=== PATIENT | male | born 1990 | race Caucasian/White ===

== ENCOUNTER 2016-10-11 17:38 | Inpatient (IN) | payer SELFPAY ==
[2016-10-11] MEDS ORDERED: SODIUM CHLORIDE 0.9% 1000ML 1,000 ML IVS ONE ×2 (17:52→20:10)
--- NOTE | 2016-10-11 17:55 | ED.PDOC ---
History of Present Illness - General Chief Complaint: Diabetic Complaint Stated Complaint: trouble breathing,elevated blood sugar Time Seen by Provider: 10/11/16 17:44 Source: patient, RN notes reviewed, Vital Signs reviewed Exam Limitations: no limitations - History of Present Illness Initial Comments: Patient comes in due to feeling like his blood sugar is high. He took his last dose of insulin yesterday morning. HE c/o SOB and light sensitivity. Nausea yesterday. No increased urination. He was diagnosed as a diabetic 8 months ago. Timing/Duration: 24 hours Severity: moderate Improving Factors: nothing Worsening Factors: nothing Associated Symptoms: shortness of breath Allergies/Adverse Reactions: Allergies NO KNOWN ALLERGY Allergy (Verified 10/11/16 17:48) Home Medications: Ambulatory Orders Insulin Detemir [Levemir] 300 unit SUBCU .SLIDING SCALE 10/11/16 Insulin NPH Isophane & Reg (Hu [Humulin 70/30] 50 unit SC BID 10/11/16 Review of Systems - Review of Systems Constitutional: States: malaise EENTM: States: other - light sensitivity Respiratory: States: short of breath Cardiology: States: no symptoms reported Gastrointestinal/Abdominal: States: nausea Genitourinary: States: no symptoms reported Musculoskeletal: States: no symptoms reported Skin: States: no symptoms reported Neurological: States: no symptoms reported Endocrine: States: see HPI Hematologic/Lymphatic: States: no symptoms reported Past Medical History (General) - Patient Medical History Hx Congestive Heart Failure: No Hx Gastroesophageal Reflux: Yes - Vaccination History Hx Influenza Vaccination: No - Social History Hx Tobacco Use: Yes Family Medical History - Family History Father Family History: Unknown Living Status: Unknown Physical Exam - Physical Exam General Appearance: Alert, Comfortable, Ill Appearing, Other - strong Acetone smell Neck: non-tender, full range of motion, supple, normal inspection Respiratory: chest non-tender, lungs clear, normal breath sounds, no respiratory distress, no accessory muscle use Cardiovascular/Chest: regular rate, rhythm, no edema, no gallop, no murmur Gastrointestinal/Abdominal: normal bowel sounds, non tender, soft, no organomegaly, no pulsatile mass Neurologic: no motor/sensory deficits, alert, normal mood/affect, oriented x 3 Skin Exam: normal color, warm/dry Comments: Vital Signs - 24 hr 10/11/16 17:48 Temperature 95.3 F L Pulse Rate [ 102 H Left Brachial] Respiratory 20 Rate Blood Pressure 148/92 [Left Arm] O2 Sat by Pulse 100 Oximetry Progress - Progress Progress: 10/11/16 18:45 Patient with DKA. Started IV fluids and gave SQ insulin. Discussed with hospitalist. Will admit. Wants ABG. - Results/Orders Results/Orders: Laboratory Tests 10/11/16 10/11/16 10/11/16 17:52 17:52 17:57 WBC 14.2 H RBC 5.73 Hgb 18.2 H Hct 55.3 H MCV 96.5 H MCH 31.7 H MCHC 32.9 L RDW 13.6 Plt Count 389 MPV 7.0 L Absolute Neuts (auto) 10.50 H Absolute Lymphs (auto) 2.20 Absolute Monos (auto) 1.00 H Absolute Eos (auto) 0.40 Absolute Basos (auto) 0.10 Neutrophils % 74.2 Lymphocytes % 15.1 L Monocytes % 6.8 Eosinophils % 2.9 Basophils % 1.0 Sodium 126 L Potassium 4.4 Chloride 95 L Carbon Dioxide < 7 L* Anion Gap 28.4 H BUN 13 Creatinine 1.01 BUN/Creatinine Ratio 12.9 POC Glucose > 400 H* Random Glucose 541 H* Serum Osmolality 278.1 Calcium 8.6 Total Bilirubin 1.7 H AST 16 ALT 20 Alkaline Phosphatase 184 H Serum Total Protein 8.8 H Albumin 4.4 Globulin 4.4 H Albumin/Globulin Ratio 1.0 L Serum Ketones Moderate Departure - Departure Clinical Impression: Diabetes mellitus with ketoacidosis Qualifiers: Diabetes mellitus type: type 1 Diabetes mellitus complication detail: without coma Qualified Code(s): E10.10 - Type 1 diabetes mellitus with ketoacidosis without coma Time of Disposition: 18:46 Disposition: Admit Patient Condition: Poor Departure Forms: ED Discharge - Pt. Copy, Patient Portal Self Enrollment Home Medications: Ambulatory Orders Insulin Detemir [Levemir] 300 unit SUBCU .SLIDING SCALE 10/11/16 Insulin NPH Isophane & Reg (Hu [Humulin 70/30] 50 unit SC BID 10/11/16 Decision To Admit - Decistion To Admit Decision to Admit Reason: Admit from ER - Admit for DKA - discussed with hospitalist
[2016-10-11] MEDS ORDERED: INSULIN, REG.(HUMAN) 100 U/ML VIAL SUBCU ONE (18:40)
[2016-10-11] MEDS ORDERED: ACETAMINOPHEN 325 MG TAB PO PRN (19:06)
[2016-10-11] MEDS ORDERED: ONDANSETRON INJ 4 MG/2 ML VIAL IV PRN (19:06)
[2016-10-11] MEDS ORDERED: SODIUM CHLORIDE 0.9% (FLUSH) 10 ML SYG IV PRN (19:06)
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
[2016-10-11] MEDS ORDERED: IV SET AND CAP CHANGE INJ INJ SCH (19:30)
[2016-10-11] MEDS ORDERED: SODIUM CHLORIDE 0.9% 1000ML 1,000 ML ONE (19:53)
[2016-10-11] MEDS ORDERED: KCL 20 MEQ/NS 1,000 ML IVS PRN (20:48)
[2016-10-11] MEDS ORDERED: SODIUM CHL 0.9% 250ML (AVIVA) 250 ML IVPB ONE (20:55)
[2016-10-11] MEDS ORDERED: INSULIN, REG.(HUMAN) 100 U/ML VIAL ONE (20:56)
[2016-10-11] MEDS ORDERED: KCL 20 MEQ/NS 1,000 ML IVS ONE (21:01)
[2016-10-11] MEDS: INSULIN, REG.(HUMAN) 250 UNITS in SODIUM CHL 0.9% 250ML (AVIVA) 247.5 ML IVPB SCH ×2 (21:25)
[2016-10-11] MEDS ORDERED: KCL 20MEQ/D5NS 1,000 ML IVS PRN (22:31)
[2016-10-11] MEDS ORDERED: KCL 20MEQ/D5NS 1,000 ML IVS ONE (22:42)
--- NOTE | 2016-10-11 23:58 | PCM.CORE ---
Physician DVT/VTE - Nurse DVT Assessment & Total Each Risk Factor Represents 1 Point: Medical PT at Bed Rest, Hx of smoking past year DVT Assessment Score: 2 - 2 Moderate Risk Treatments: Early Ambulation *, Sequential Compression Device Pharmacological: Enoxaparin 40mg SQ Daily
[2016-10-12] MEDS: ENOXAPARIN SODIUM 40 MG/0.4 ML SYG SUBCU SCH ×2 (00:39→00:51)
[2016-10-12] MEDS ORDERED: KCL 30MEQ/D5 1/2NS 1,000 ML IVS PRN (02:42)
[2016-10-12] MEDS ORDERED: DEX 5% W/NACL 0.45% 1000ML 1,000 ML IVS ONE (02:55)
[2016-10-12] MEDS ORDERED: POTASSIUM CHLORIDE 20mEq 10ML VIAL ONE (02:55)
[2016-10-12] MEDS ORDERED: POTASSIUM CHLORIDE 10mEq 5ML VIAL ONE ×2 (02:55→07:32)
[2016-10-12] MEDS ORDERED: MORPHINE SULFATE INJ 10 MG/ML VIAL ONE (07:26)
[2016-10-12] MEDS ORDERED: KCL 20MEQ/D5 1/2NS 1,000 ML IVS ONE (07:31)
[2016-10-12] MEDS: INSULIN, REG.(HUMAN) 250 UNITS in SODIUM CHL 0.9% 250ML (AVIVA) 247.5 ML IVPB SCH ×2 (07:56)
[2016-10-12] MEDS ORDERED: [UNRECOGNIZED DRUG - OTHER] IV PRN (08:00)
[2016-10-12] MEDS ORDERED: KCL IV PRN (08:00)
[2016-10-12] MEDS ORDERED: POTASSIUM CHLORIDE IV PRN (08:00)
[2016-10-12] MEDS ORDERED: GLUCAGON INJ 1 MG VIAL SUBCU PRN (08:06)
[2016-10-12] MEDS ORDERED: DEXTROSE 50% 25 GM/50 ML SYG IV PRN (08:06)
[2016-10-12] MEDS ORDERED: MAGNESIUM SULFATE PREMIX 2GM 2 GM in PREMIX BAG 1 BAG IVPB ONE (08:08)
[2016-10-12] MEDS ORDERED: POTASSIUM PHOSPHATES IVPB PRN (08:15)
[2016-10-12] MEDS ORDERED: SODIUM CHLORIDE 0.45% IVPB PRN (08:15)
[2016-10-12] MEDS ORDERED: SODIUM CHLORIDE 0.9% (FLUSH) 10 ML SYG IV SCH (09:00)
[2016-10-12] MEDS ORDERED: MAGNESIUM SULFATE PREMIX 2GM 50 ML IVPB ONE (09:01)
[2016-10-12] MEDS ORDERED: SODIUM CHLORIDE 0.45% 1000ML 1,000 ML IVS ONE (09:02)
[2016-10-12] MEDS ORDERED: POTASSIUM PHOSPHATES INJ 22 MEQ/5 ML VIAL IVPB ONE (09:02)
[2016-10-12] MEDS ORDERED: POTASSIUM CHLORIDE 20 MEQ TAB PO ONE (10:24)
[2016-10-12] MEDS: INSULIN LISPRO 100 UNITS/ML PEN SUBCU SCH ×2 (11:27→16:59)
[2016-10-12] MEDS ORDERED: INSULIN DETEMIR 100 UNITS/ML PEN SUBCU ONE (11:48)
[2016-10-12] MEDS ORDERED: INSULIN 70/30 (HUMAN) 100 UNITS/ML PEN SUBCU SCH (12:00)
[2016-10-12 13:37] VITALS: BP 100/66; TEMP 98.2
[2016-10-12 16:51] VITALS: O2SAT 98
[2016-10-12] MEDS ORDERED: ENOXAPARIN SODIUM 40 MG/0.4 ML SYG SUBCU SCH (21:00)
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
== END 2016-10-12 19:35 | disposition home or self-care (01) | DRG 639 ==
LOC: ER 17:38 → MS 19:20
PROVIDERS: ADMIT Nurse Practitioner Family; ATTEND Nurse Practitioner Family
DX: E10.10 Type 1 diabetes mellitus with ketoacidosis without coma (principal); T38.3X6A Underdosing of insulin and oral hypoglycemic [antidiabetic] drugs, initial encounter; Y92.009 Unspecified place in unspecified non-institutional (private) residence as the place of occurrence of the external cause; E10.65 Type 1 diabetes mellitus with hyperglycemia; E86.0 Dehydration; K21.9 Gastro-esophageal reflux disease without esophagitis; F17.210 Nicotine dependence, cigarettes, uncomplicated; Z79.4 Long term (current) use of insulin